=== PATIENT | female | born 1980 | race Two or more races ===

== ENCOUNTER 2019-02-26 00:03 | Emergency (ER) | payer MEDICAID ==
[~2019-02-26] VITALS: Ht 172.7 cm; Wt 81.6 kg
[2019-02-26] MEDS ORDERED: MORPHINE SULFATE 4 MG/ML SYR/VIAL IV ONE (02:15)
[2019-02-26] MEDS ORDERED: ONDANSETRON HCL 4 MG/2 ML VIAL IV ONE (02:15)
[2019-02-26 02:34] LABS: Urine Bacteria MOD /hpf (None Seen); Urine Blood 2+ /uL (Negative); Urine Mucus FEW (None Seen); Urine Specific Gravity 1.019 (1.001-1.035); Urine WBC 35 /hpf (0 - 5)
[2019-02-26 03:30] VITALS: BP 142/79
== END 2019-02-26 04:30 | disposition home or self-care (01) ==
LOC: ER 00:05
DX: N39.0 Urinary tract infection, site not specified (principal); R33.8 Other retention of urine; C53.9 Malignant neoplasm of cervix uteri, unspecified
CPT/HCPCS: 81001; 96374; 96375; 99283; J2270; J2405